=== PATIENT | female | born 2000 | race Caucasian/White ===

== ENCOUNTER 2020-03-19 19:02 | Emergency (ER) | payer OTHER ==
[~2020-03-19] VITALS: Ht 162.6 cm; Wt 68.0 kg
[2020-03-19 19:44] LABS: URINE BILIRUBIN NEGATIVE (Negative); URINE BLOOD NEGATIVE (Negative); URINE CLARITY CLEAR; URINE COLOR YELLOW; URINE GLUCOSE-RANDOM NEGATIVE (Negative); URINE KETONES NEGATIVE (Negative); URINE LEUKOCYTES-REFLEX 1+ (Negative); URINE NITRITE-REFLEX NEGATIVE (Negative); URINE PROTEIN NEGATIVE (Negative); URINE UROBILINOGEN 0.2 E.U./dl (0.2-1.0)
[2020-03-19] MEDS ORDERED: SUPRAX400 M1 PO (19:45)
[2020-03-19] MEDS ORDERED: AZITHROMYCIN250 MG PO (19:45)
[2020-03-19] MEDS ORDERED: DOXYCYCLINE 10100 MG PO (19:52)
[2020-03-19 19:55] VITALS: BP 124/75
[2020-03-19 20:00] LABS: BACTERIA-REFLEX >30 Many /HPF (None Seen); CASTS None Seen /LPF (None Seen); CRYSTALS None Seen /LPF (None Seen); SQUAMOUS 0-3 Few /LPF (0-3); URINE RBC 0-2 Rare /HPF (0-2); URINE WBC-REFLEX >25 Many /HPF (0-5)
== END 2020-03-19 19:55 | disposition home or self-care (01) ==
LOC: M.ERS 19:02
PROVIDERS: Physician Assistant
DX: A64 Unspecified sexually transmitted disease (principal)